=== PATIENT | male | born 1940 ===

== ENCOUNTER → 2019-11-27 | Outpatient (CLI) | payer MEDICAID | END | disposition home or self-care (01) | LOC: NPLAB 11:40 | PROVIDERS: ATTEND Internal Medicine | DX: S90.421A Blister (nonthermal), right great toe, initial encounter (principal); M62.50 Muscle wasting and atrophy, not elsewhere classified, unspecified site; X58.XXXA Exposure to other specified factors, initial encounter; Y93.89 Activity, other specified; Y92.89 Other specified places as the place of occurrence of the external cause; Y99.8 Other external cause status | CPT/HCPCS: 87070; 87186 ==